=== PATIENT | female | born 1975 | race Hispanic/Latino ===

== ENCOUNTER → 2018-02-22 | Outpatient (CLI) | payer BC ==
--- NOTE | 2018-02-22 14:40 | Diagnostic Imaging Report ---
TECHNIQUE: Magnetic resonance imaging of the LEFT KNEE was performed WITHOUT injected contrast. HISTORY: Pain COMPARISON: None available. FINDINGS: LIGAMENTS AND TENDONS: ACL: Intact fibers with moderate intrasubstance degeneration. PCL: Intact Collateral ligaments: Intact Iliotibial band: Unremarkable Popliteal tendon: Intact Extensor mechanism: Intact JOINT: Menisci: Medial: Intrasubstance degeneration of the body and posterior horn. Mild focal delamination near the posterior root attachment. No discrete well-defined displaced meniscal tear. Lateral: Minimal intrasubstance delamination near the anterior root attachment. No discrete well-defined displaced meniscal tear. Articular Cartilage: Medial Compartment: Minimal superficial erosion of the weightbearing cartilage. Lateral Compartment: No focal defect. Patellofemoral Compartment: No focal defect. Joint Fluid: The amount of fluid within the joint is within physiologic limits. Mild synovitis, most notably along the anterior joint line. BONES: No focal or infiltrative bone marrow replacing abnormality. No acute fracture. SOFT TISSUES: Otherwise, unremarkable. IMPRESSION: 1. Multifocal degenerative changes, most notably minimal of the medial compartment. 2. Mild synovitis, most notably along the anterior joint line. Signed by: Dr. Ag Brown D.O., M.M.M. on 02/22/2018 2:37 PM
--- NOTE | 2018-02-22 15:20 | Diagnostic Imaging Report ---
TECHNIQUE: Magnetic resonance imaging of the LEFT ANKLE was performed WITHOUT injected contrast. HISTORY: Fell, swelling, pain COMPARISON: None available. FINDINGS: LIGAMENTS: Medial Complex: Intact, mild increased intrasubstance signal within the deep fibers of the deltoid ligament. The spring ligament is intact. Lateral Complex: Intact, including the tibiofibular ligaments. TENDONS: Medial: Intact Lateral: Intact Anterior: Intact Achilles: Minimal thickening of the distal tendon with mildly increased intrasubstance signal. BONES: No focal or infiltrative bone marrow replacing abnormality. No acute fracture or osteonecrosis. Moderate plantar calcaneal and small dorsal calcaneal enthesophytes. Mild subchondral bone marrow edema at the posterior aspect of the medial talus and mild subcortical bone marrow edema of the adjacent posterior aspect of the lateral malleolus. JOINTS: Cartilage: No focal defect involving the tibiotalar joint. Other: Fluid within the joints is within physiologic limits. SOFT TISSUES: Mild medial superficial soft tissue edema. Mild thickening of the medial cord of the plantar fascia near the calcaneal insertion. IMPRESSION: 1. Mild sprain versus contusion involving the deep fibers of the deltoid ligament. 2. Mild bone marrow contusion versus subchondral edema at the medial aspect of the talar dome and adjacent distal fibula. 3. Minimal distal Achilles tendinosis. 4. Chronic calcaneal enthesopathy. Signed by: Dr. Ag Brown D.O., M.M.M. on 02/22/2018 3:16 PM
== END ==
LOC: RAD 09:49
PROVIDERS: ATTEND Specialist
DX: M25.562 Pain in left knee (principal); M25.572 Pain in left ankle and joints of left foot